=== PATIENT | male | born 1960 | race African-American/Black ===

== ENCOUNTER 2016-06-25 11:11 | Inpatient (IN) | payer OTHER ==
[2016-06-25 13:31] VITALS: BMI 28.4
--- NOTE | 2016-06-25 16:34 | HP ---
COWS - Scale Resting Pulse: 1= [place] 81-100 Sweatin=Flushed/Facial Moisture Restless Observation: 3= Extraneous Movement Pupil Size: 2= Moderately Dilated Bone or Joint Aches: 2= Severe Diffuse Aches Runny Nose/ Eye Tearin= Runny Nose/Eyes GI Upset > 30mins: 3= Vomiting/Diarrhea Tremor Observation: 2= Slight Tremor Visible Yawning Observation: 2= >3x During Session Anxiety or Irritability: 2=Irritable/Anxious Goose Flesh Skin: 0=Smooth Skin COWS Score: 21 CIWA Score - CIWA Score Nausea/Vomitin Muscle Tremors: 3 Anxiety: 3 Agitation: 3 Paroxysmal Sweats: 2 Orientation: 0-Oriented Tacttile Disturbances: 2-Mild Itch/Numbness/Burn Auditory Disturbances: 2-Mild Harshness/Frighten Visual Disturbances: 2-Mild Sensitivity Headache: 2-Mild CIWA-Ar Total Score: 22 Admission ROS BHS - HPI Chief Complaint: I NEED HELP TO STOP USING HEROIN,ALCOHOL AND COCAINE Allergies/Adverse Reactions: Allergies Allergy/AdvReac Type Severity Reaction Status Date / Time tomato [Tomato] Allergy Severe Hives Verified 06/25/16 14:41 No Known Drug Allergies Allergy Unknown Verified 06/25/16 14:41 tomatoes Allergy Severe Hives Uncoded 06/25/16 14:41 History of Present Illness: THIS 55 YEARS OLD MALE WITH HEROIN,ALCOHOL AND COCAINE DEPENDENCE,WITHDRAWAL SYMPTOM,LAST DETOX [facility] IN 01/19 ASTHMA DVT 2 YEARS AGO STOP COUMADIN 18 MONTHS AGO GERD LOW BACK PAIN LONGEST PERIOD OF SOBRIETY 9 YEARS 7 MONTHS Exam Limitations: No Limitations - Ebola screening Have you traveled outside of the country in the last 21 days: No (N) Have you had contact with anyone from an Ebola affected area: No Have you been sick,other than usual withdrawal symptoms: No Do you have a fever: No - Review of Systems Constitutional: Loss of Appetite, Malaise, Night Sweats, Changes in sleep, Weakness EENT: reports: Tearing, Nose Congestion Respiratory: reports: Other (ASTHMA) Cardiac: reports: Palpitations GI: reports: Diarrhea, Vomiting, Abdominal cramping : reports: No Symptoms Reported Musculoskeletal: reports: Back Pain, Muscle Pain Integumentary: reports: Dryness Neuro: reports: Headache, Tremors Endocrine: reports: No Symptoms Reported Hematology: reports: No Symptoms Reported Psychiatric: reports: Depressed Patient History - Patient Medical History Hx Anemia: No Hx Asthma: No Hx Chronic Obstructive Pulmonary Disease (COPD): No Hx Cancer: No Hx Cardiac Disorders: No Hx Congestive Heart Failure: No Hx Hypertension: No Hx Hypercholesterolemia: No Hx Pacemaker: No HX Cerebrovascular Accident: No Hx Seizures: No Hx Dementia: No Hx Diabetes: No Hx Gastrointestinal Disorders: No Hx Liver Disease: No Hx Genitourinary Disorders: No Hx Sexually Transmitted Disorders: No Hx Renal Disease (ESRD): No Hx Thyroid Disease: No Hx Human Immunodeficiency Virus (HIV): No (negative in 2012) Hx Hepatitis C: No Hx Depression: No Hx Suicide Attempt: No Hx Bipolar Disorder: No Hx Schizophrenia: No Other Medical History: NO SUICIDAL,NO HOMICIDAL - Patient Surgical History Past Surgical History: Yes Hx Neurologic Surgery: No Hx Cataract Extraction: No Hx Cardiac Surgery: No Hx Lung Surgery: No Hx Breast Surgery: No Hx Breast Biopsy: No Hx Abdominal Surgery: No Hx Appendectomy: No Hx Cholecystectomy: No Hx Genitourinary Surgery: No Hx Section: No Hx Orthopedic Surgery: Yes (s/p laminectomy AT L1-L5 X 7) Hx Hysterectomy: No Other Surgical History: neck sx x2 in 1999- 2009, vascular surgery to break up clots 12/2014 Anesthesia Reaction: No - PPD History Previous Implant?: Yes Documented Results: Negative w/o proof PPD to be Administered?: Yes - Smoking Cessation Smoking history: Current some day smoker Have you smoked in the past 12 months: Yes Aproximately how many cigarettes per day: 5 Cigars Per Day: 0 Hx Chewing Tobacco Use: No Initiated information on smoking cessation: Yes 'Breaking Loose' booklet given: 06/25/16 - Substance & Tx. History Hx Alcohol Use: Yes Hx Substance Use: Yes Substance Use Type: Alcohol, Cocaine, Marijuana, Opiates Hx Substance Use Treatment: Yes ([facility] 01/27/16) - Substances Abused Cocaine Route: Inhalation Frequency: 1-3 times last 30 days Amount used: 1 Gm Age of first use: 37 Date of Last Use: 06/22/16 Heroin Route: Inhalation Frequency: Daily Amount used: 3 bags Age of first use: 30 Date of Last Use: 06/24/16 Marijuana/Hashish Route: Smoking Frequency: 3-6 times per week Amount used: 1 blunt Age of first use: 30 Date of Last Use: 06/15/16 Alcohol Route: Oral Frequency: Daily Amount used: 1PINT OF MAKAYLA/6 OF 40 OZS OF BEER Age of first use: 30 Date of Last Use: 06/24/16 Family Disease History - Family Disease History Family Disease History: Diabetes: Grandparent, Father, Mother Admission Physical Exam [facility] - Vital Signs Vital Signs: Vital Signs - 24 hr 06/25/16 13:27 Temperature 97.5 F L Pulse Rate 91 H Respiratory 20 Rate Blood Pressure 120/72 - Physical General Appearance: Yes: Moderate Distress, Tremorous, Irritable, Sweating, Anxious HEENTM: Yes: Nasal Congestion, Rhinorrhea Respiratory: Yes: Lungs Clear Neck: Yes: Within Normal Limits Breast: Yes: Within Normal Limits Cardiology: Yes: Within Normal Limits, Regular Rhythm, Regular Rate, S1, S2 Abdominal: Yes: Within Normal Limits, Normal Bowel Sounds, Non Tender, Flat, Soft Genitourinary: Yes: Within Normal Limits Back: Yes: Muscle Spasm Extremities: Yes: Tremors Neurological: Yes: fountain server II-XII NML intact, Fully Oriented, Alert, Motor Strength 5/5 Integumentary: Yes: Dry Lymphatic: Yes: Within Normal Limits - Diagnostic (1) Alcohol dependence with uncomplicated withdrawal Current Visit: No Status: Chronic (2) Asthma Current Visit: No Status: Chronic (3) Chronic back pain Current Visit: No Status: Chronic (4) DVT (deep venous thrombosis) Current Visit: No Status: Chronic Qualifiers: Laterality: left Qualified Code(s): I82.402 - Acute embolism and thrombosis of unspecified deep veins of left lower extremity (5) Low back pain Current Visit: No Status: Chronic (6) Nicotine dependence Current Visit: No Status: Chronic (7) Opioid dependence with withdrawal Current Visit: No Status: Chronic (8) Cannabis dependence Current Visit: Yes Status: Acute (9) Cocaine dependence Current Visit: No Status: Chronic (10) Depression Current Visit: Yes Status: Acute (11) H/O neck surgery Current Visit: Yes Status: Acute (12) History of back surgery Current Visit: Yes Status: Acute Cleared for Admission [facility] - Detox or Rehab [facility] Level of Care: Medically Managed Detox Regimen/Protocol: Methadone/Librium [facility] Breath Alcohol Content Breath Alcohol Content: 0 Urine Drug Screen - Results Drug Screen Negative: No Urine Drug Screen Results: BRIANNA-Cocaine, OPI-Opiates, OXY-Oxycodone
[2016-06-25] MEDS ORDERED: MAGNESIUM CITRATE 300 ML BOTTLE PO PRN (16:57)
[2016-06-25] MEDS ORDERED: IBUPROFEN 400 MG TABLET (FP) PO PRN (16:57)
[2016-06-25] MEDS ORDERED: MENTHOL/PHENOL 1 EACH UD MM PRN (16:57)
[2016-06-25] MEDS ORDERED: hydrOXYzine PAMOATE 50 MG CAPSULE (FP) PO PRN (16:57)
[2016-06-25] MEDS ORDERED: chlordiazePOXIDE HCL 25 MG CAPSULE PO PRN (16:57)
[2016-06-25] MEDS ORDERED: guaiFENesin/D-METHORPHAN HB 10 ML UNIT-DOSE CUPS PO PRN (16:57)
[2016-06-25] MEDS ORDERED: LOPERAMIDE HCL 2 MG CAPSULE PO PRN (16:57)
[2016-06-25] MEDS ORDERED: P-EPHED 60MG/TRIPROLIDI 2.5MG TABLET PO PRN (16:57)
[2016-06-25] MEDS ORDERED: MAGNESIUM HYDROX 2400MG/30ML ORAL SUSPENSION 30 ML CUP PO PRN (16:57)
[2016-06-25] MEDS ORDERED: ACETAMINOPHEN 325 MG TABLET (FP) PO PRN (16:57)
[2016-06-25] MEDS ORDERED: ALBUTEROL SO4 6.7 GM HFA INHALER IH PRN (17:02)
[2016-06-25] MEDS ORDERED: METHADONE HCL 10 MG TABLET (FOR DETOX USE ONLY) PO ONE ×2 (17:30→23:00)
[2016-06-25] MEDS ORDERED: chlordiazePOXIDE HCL 25 MG CAPSULE PO ONE (17:30)
[2016-06-25] MEDS: PANTOPRAZOLE 40 MG TABLET (FP) PO SCH (19:12)
[2016-06-25] MEDS: THIAMINE HCL 100 MG TABLET (FP) PO SCH (22:08)
[2016-06-25] MEDS: chlordiazePOXIDE HCL 25 MG CAPSULE PO SCH (22:09)
[2016-06-25] MEDS: TOLNAFTATE 1% CREAM 15 GM TUBE TP SCH (22:12)
[2016-06-25 23:24] LABS: URINE APPEARANCE CLEAR; URINE BILIRUBIN NEGATIVE (NEGATIVE); URINE BLOOD NEGATIVE (NEGATIVE); URINE COLOR YELLOW; URINE GLUCOSE (UA) NEGATIVE (NEGATIVE); URINE KETONE TRACE (NEGATIVE); URINE LEUK ESTERASE NEGATIVE (NEGATIVE); URINE NITRITE NEGATIVE (NEGATIVE); URINE PROTEIN 1+ (NEGATIVE); URINE UROBILINOGEN NEGATIVE E.U./dl (0.2-1.0)
[2016-06-25 23:46] LABS: CALCIUM OXALATE CRYSTALS FEW /hpf (NONE SEEN); URINE BACTERIA RARE /hpf (NONE SEEN); URINE MUCUS MANY; URINE RBC 2 /hpf (0-3); URINE WBC 2 /hpf (3-5)
[2016-06-26] MEDS: MAG HYDROX/AL HYDROX/SIMETH 30 ML UNIT-DOSE CUP PO PRN (02:53)
[2016-06-26] MEDS: chlordiazePOXIDE HCL 25 MG CAPSULE PO SCH ×4 (05:19→22:14)
--- NOTE | 2016-06-26 09:36 | PN ---
BHS Progress Note (SOAP) Subjective: interrupted sleep, sweats ankle chin pains Objective: 06/26/16 09:34 Vital Signs Temperature 97.5 F L 06/26/16 06:00 Pulse Rate 62 06/26/16 06:00 Respiratory Rate 18 06/26/16 06:00 Blood Pressure 117/74 06/26/16 06:00 O2 Sat by Pulse Oximetry (%) Laboratory Tests 06/25/16 18:00 Urine Color Yellow Urine Appearance Clear Urine pH 5.0 Ur Specific [place] 1.021 Urine Protein 1+ H Urine Glucose (UA) Negative Urine Ketones Trace H Urine Blood Negative Urine Nitrite Negative Urine Bilirubin Negative Urine Urobilinogen Negative Ur Leukocyte Esterase Negative Urine RBC 2 Urine WBC 2 Calcium Oxalate Crystal Few Urine Bacteria Rare Urine Mucus Many pt aox3 in nad ambulating 06/26/16 11:29 pt aox3 in nad ambulating , slowly rt great toe amputation , rt chin bruise Assessment: 06/26/16 09:35 withdrawl sx;s h/o lung pathology needs cxr rt lower ext bruise 06/26/16 11:30 Plan: cont. detox increase fluids cxr flexeril 10mg tid analgesic balm bid may use own shoes
[2016-06-26] MEDS ORDERED: METHADONE HCL 10 MG TABLET (FOR DETOX USE ONLY) PO SCH (10:00)
[2016-06-26] MEDS: PRENATAL VITAMINS W/ FOLIC ACID TABLET (FP) PO SCH (10:06)
[2016-06-26] MEDS: PANTOPRAZOLE 40 MG TABLET (FP) PO SCH (10:07)
[2016-06-26 10:14] LABS: MCH 28.7 pg (25.7-33.7); MCHC 32.8 g/dl (32.0-35.9); MEAN CELL VOLUME 87.7 fl (80-96); MEAN PLT VOLUME 10.2 fl (7.5-11.1); PLATELET COUNT 207 K/MM3 (134-434); RDW 15.2 % (11.9-15.9); WHITE BLOOD COUNT 7.2 K/mm3 (4.0-10.0)
[2016-06-26 10:26] LABS: ALBUMIN 3.4 g/dl (3.4-5.0); ANION GAP 8 (8-16); BILIRUBIN,TOTAL 0.2 mg/dL (0.2-1.0); CO2 27 mmol/L (21-32); GLUCOSE,RANDOM 82 mg/dL (74-106); SGOT/AST 26 U/L (15-37); SGPT/ALT 34 U/L (12-78); TOT PROT 7.4 g/dl (6.4-8.2)
[2016-06-26 10:28] LABS: ALK PHOS 99 U/L (45-117); CALCIUM 9.8 mg/dL (8.5-10.1); CREATININE 0.9 mg/dL (0.7-1.3)
[2016-06-26] MEDS: TOLNAFTATE 1% CREAM 15 GM TUBE TP SCH ×2 (11:00→23:40)
[2016-06-26 11:45] LABS: HIV 1 & 2 AB NEGATIVE; HIV 1 AGp24 NEGATIVE
[2016-06-26] MEDS: CYCLOBENZAPRINE HCL 10 MG TABLET (FP) PO PRN ×2 (13:48→22:14)
--- NOTE | 2016-06-26 14:55 | CONSULT ---
[facility] Psychiatric Consult - Data Date of interview: 06/26/16 Admission source: [facility] Identifying data: Readmission to [facility] for this 55 y/o AA male seeking detox treatment on for alcohol,cocaine,marijuana and opioid dependence.Patient is ,a father of eight,domiciled,unemployed and supported on [facility] benefits. Substance Abuse History: - Smoking Cessation. Smoking history: Current some day smoker. Have you smoked in the past 12 months: Yes. Aproximately how many cigarettes per day: 5. Cigars Per Day: 0. Hx Chewing Tobacco Use: No. Initiated information on smoking cessation: Yes. 'Breaking Loose' booklet given : 06/25/16. - Substance & Tx. History. Hx Alcohol Use: Yes. Hx Substance Use : Yes. Substance Use Type: Alcohol, Cocaine, Marijuana, Opiates. Hx Substance Use Treatment: Yes ([facility] 01/27/16). - Substances Abused. Cocaine. Route: Inhalation. Frequency: 1-3 times last 30 days. Amount used: 1 Gm. Age of first use: 37. Date of Last Use: 06/22/16. Heroin. Route: Inhalation. Frequency: Daily. Amount used: 3 bags. Age of first use: 30. Date of Last Use : 06/24/16. Marijuana/Hashish. Route: Smoking. Frequency: 3-6 times per week. Amount used: 1 blunt. Age of first use: 30. Date of Last Use: . Alcohol. Route: Oral. Frequency: Daily. Amount used: 1PINT OF MAKAYLA/6 OF 40 OZS OF BEER. Age of first use: 30. Date of Last Use: . Confirmed by the patient in this interview. Medical History: Obesity,DVT,GERD,bronchial asthma and a history of orthosurgery (laminectomy at L1-L5 level). Psychiatric History: Patient denies. Physical/Sexual Abuse/Trauma History: Patient denies history of sexual abuse.Current stressor :recent of his five year old son to leukemia. Additional Comment: Urine Drug Screen Results: BRIANNA-Cocaine, OPI-Opiates, OXY- Oxycodone.Noted. Mental Status Exam - Mental Status Exam Alert and Oriented to: Time, Place, Person Cognitive Function: Good Patient Appearance: Well Groomed (tall,overweight) Mood: Nervous, Hopeful Affect: Appropriate, Constricted (during interview when talking about his five year old departed child) Patient Behavior: Appropriate, Cooperative Speech Pattern: Clear Voice Loudness: Normal Thought Process: Goal Oriented Thought Disorder: Not Present Hallucinations: Denies Suicidal Ideation: Denies Homicidal Ideation: Denies Insight/Judgement: Poor Sleep: Fair Appetite: Good Muscle strength/Tone: Normal Gait/Station: Normal Psychiatric Findings - Problem List ([place] 1, 2,3) (1) Bereavement Current Visit: Yes Status: Acute (2) Alcohol dependence with uncomplicated withdrawal Current Visit: Yes Status: Chronic (3) Opioid dependence with withdrawal Current Visit: Yes Status: Chronic (4) Cocaine dependence Current Visit: Yes Status: Chronic (5) Cannabis dependence Current Visit: Yes Status: Acute (6) Nicotine dependence Current Visit: No Status: Chronic (7) Substance induced mood disorder Current Visit: Yes Status: Acute (8) H/O neck surgery Current Visit: No Status: Chronic (9) History of back surgery Current Visit: No Status: Chronic (10) Asthma Current Visit: Yes Status: Chronic (11) Chronic back pain Current Visit: Yes Status: Chronic (12) DVT (deep venous thrombosis) Current Visit: Yes Status: Chronic Qualifiers: Laterality: left Qualified Code(s): I82.402 - Acute embolism and thrombosis of unspecified deep veins of left lower extremity (13) Low back pain Current Visit: Yes Status: Chronic - Initial Treatment Plan Initial Treatment Plan: Psychoeducation.Detoxification.Support and empathy provided to the patient.Observation.
--- NOTE | 2016-06-26 21:36 | EKG ---
Test Reason : Blood Pressure : / mmHG Vent. Rate : 082 BPM Atrial Rate : 082 BPM P-R Int : 146 ms QRS Dur : 090 ms QT Int : 360 ms P-R-T Axes : 074 055 053 degrees QTc Int : 420 ms NORMAL SINUS RHYTHM RIGHT ATRIAL ENLARGEMENT BORDERLINE ECG NO PREVIOUS ECGS AVAILABLE Confirmed by BERNA WETZEL, JOHNATHAN ([id number]) on 06/26/2016 9:35:47 PM Referred By: Confirmed By:JOHNATHAN CORONEL MD
[2016-06-26] MEDS: THIAMINE HCL 100 MG TABLET (FP) PO SCH (22:14)
[2016-06-26] MEDS: diphenhydrAMINE HCL 50 MG CAPSULE PO PRN (22:14)
[2016-06-26] MEDS: METHYL SALICYLATE/MENTHOL OINT 30 GM TUBE TP SCH (23:39)
[2016-06-27] MEDS: chlordiazePOXIDE HCL 25 MG CAPSULE PO SCH ×3 (05:41→17:03)
[2016-06-27] MEDS ORDERED: METHADONE HCL 5 MG TABLET (FOR DETOX USE ONLY) PO SCH (10:00)
--- NOTE | 2016-06-27 10:22 | PN ---
[facility] CIWA - CIWA Score Nausea/Vomitin-No Nausea/No Vomiting Muscle Tremors: 4-Moderate,w/Arms Extend Anxiety: 3 Agitation: 4-Moderately Restless Paroxysmal Sweats: 3 Orientation: 0-Oriented Tacttile Disturbances: 0-None Auditory Disturbances: 0-None Visual Disturbances: 0-None Headache: 1-Very Mild CIWA-Ar Total Score: 15 BHS COWS - Scale Resting Pulse: 1= ID [id number] Sweatin=Flushed/Facial Moisture Restless Observation: 1= Difficult to Sit Still Pupil Size: 0= Normal to Room Light Bone or Joint Aches: 2= Severe Diffuse Aches Runny Nose/ Eye Tearin= Nasal Congestion GI Upset > 30mins: 0= None Tremor Observation of Outstretched Hands: 2= Slight Tremor Visible Yawning Observation: 1= 1-2x During Session Anxiety or Irritability: 2=Irritable/Anxious Goose Flesh Skin: 0=Smooth Skin COWS Score: 12 S Progress Note (SOAP) Subjective: shakes sweats headache agitation constipation Objective: 06/27/16 10:18 Vital Signs Temperature 97.9 F 06/27/16 10:03 Pulse Rate 84 06/27/16 10:03 Respiratory Rate 20 06/27/16 10:03 Blood Pressure 130/73 06/27/16 10:03 O2 Sat by Pulse Oximetry (%) Laboratory Tests 06/25/16 06/26/16 06/26/16 18:00 08:00 08:00 WBC 7.2 RBC 4.98 Hgb 14.3 D Hct 43.7 MCV 87.7 MCHC 32.8 RDW 15.2 Plt Count 207 MPV 10.2 Sodium Potassium Chloride Carbon Dioxide Anion Gap BUN Creatinine Creat Clearance w eGFR Random Glucose Calcium Total Bilirubin AST ALT Alkaline Phosphatase Total Protein Albumin Urine Color Yellow Urine Appearance Clear Urine pH 5.0 Ur Specific [place] 1.021 Urine Protein 1+ H Urine Glucose (UA) Negative Urine Ketones Trace H Urine Blood Negative Urine Nitrite Negative Urine Bilirubin Negative Urine Urobilinogen Negative Ur Leukocyte Esterase Negative Urine RBC 2 Urine WBC 2 Calcium Oxalate Crystal Few Urine Bacteria Rare Urine Mucus Many RPR Titer HIV 1&2 Antibody Screen Negative HIV P24 Antigen Negative 06/26/16 06/26/16 08:00 08:00 WBC RBC Hgb Hct MCV MCHC RDW Plt Count MPV Sodium 139 Potassium 4.4 Chloride 104 Carbon Dioxide 27 Anion Gap 8 BUN 16 D Creatinine 0.9 D Creat Clearance w eGFR > 60 Random Glucose 82 D Calcium 9.8 Total Bilirubin 0.2 AST 26 D ALT 34 Alkaline Phosphatase 99 Total Protein 7.4 Albumin 3.4 Urine Color Urine Appearance Urine pH Ur Specific [place] Urine Protein Urine Glucose (UA) Urine Ketones Urine Blood Urine Nitrite Urine Bilirubin Urine Urobilinogen Ur Leukocyte Esterase Urine RBC Urine WBC Calcium Oxalate Crystal Urine Bacteria Urine Mucus RPR Titer Nonreactive HIV 1&2 Antibody Screen HIV P24 Antigen awake/alert ambulating no acute distress Assessment: 06/27/16 10:20 withdrawal sx Plan: continue detox increase fluids colace 100mg tid
[2016-06-27] MEDS: TOLNAFTATE 1% CREAM 15 GM TUBE TP SCH ×2 (10:32→22:16)
[2016-06-27] MEDS: METHYL SALICYLATE/MENTHOL OINT 30 GM TUBE TP SCH ×2 (10:32→22:16)
[2016-06-27] MEDS: PRENATAL VITAMINS W/ FOLIC ACID TABLET (FP) PO SCH (10:34)
[2016-06-27] MEDS: PANTOPRAZOLE 40 MG TABLET (FP) PO SCH (10:34)
[2016-06-27] MEDS: DOCUSATE SODIUM 100 MG CAPSULE (FP) PO SCH ×2 (15:16→22:17)
[2016-06-27] MEDS: MAG HYDROX/AL HYDROX/SIMETH 30 ML UNIT-DOSE CUP PO PRN (20:33)
[2016-06-27] MEDS: THIAMINE HCL 100 MG TABLET (FP) PO SCH (22:17)
[2016-06-27] MEDS: chlordiazePOXIDE 5 MG CAPSULE PO SCH (22:17)
[2016-06-27] MEDS: diphenhydrAMINE HCL 50 MG CAPSULE PO PRN (22:17)
[2016-06-28] MEDS: chlordiazePOXIDE 5 MG CAPSULE PO SCH (05:14)
[2016-06-28] MEDS: DOCUSATE SODIUM 100 MG CAPSULE (FP) PO SCH (05:15)
[2016-06-28 09:51] VITALS: BP 108/69; PULSE 81; TEMP 96.4
--- NOTE | 2016-06-28 10:47 | DS ---
[facility] Detox Discharge Summary Admission Date: 06/25/16 Discharge Date: 06/28/16 - History Present History: Alcohol Dependence, Cocaine Dependence, Opioid Dependence Pertinent Past History: Asthma Chronic DVT - Physical Exam Results Vital Signs: Vital Signs Temperature 96.4 F L 06/28/16 09:49 Pulse Rate 81 06/28/16 09:49 Respiratory Rate 20 06/28/16 09:49 Blood Pressure 108/69 06/28/16 09:49 O2 Sat by Pulse Oximetry (%) Pertinent Admission Physical Exam Findings: Withdrawal sx. Laboratory Last Values WBC 7.2 K/mm3 (4.0-10.0) 06/26/16 08:00 RBC 4.98 M/mm3 (4.00-5.60) 06/26/16 08:00 Hgb 14.3 GM/dL (11.7-16.9) D 06/26/16 08:00 Hct 43.7 % (35.4-49) 06/26/16 08:00 MCV 87.7 fl (80-96) 06/26/16 08:00 MCHC 32.8 g/dl (32.0-35.9) 06/26/16 08:00 RDW 15.2 % (11.9-15.9) 06/26/16 08:00 Plt Count 207 K/MM3 (134-434) 06/26/16 08:00 MPV 10.2 fl (7.5-11.1) 06/26/16 08:00 Sodium 139 mmol/L (136-145) 06/26/16 08:00 Potassium 4.4 mmol/L (3.5-5.1) 06/26/16 08:00 Chloride 104 mmol/L (98-107) 06/26/16 08:00 Carbon Dioxide 27 mmol/L (21-32) 06/26/16 08:00 Anion Gap 8 (8-16) 06/26/16 08:00 BUN 16 mg/dL (7-18) D 06/26/16 08:00 Creatinine 0.9 mg/dL (0.7-1.3) D 06/26/16 08:00 Creat Clearance w eGFR > 60 (>60) 06/26/16 08:00 Random Glucose 82 mg/dL (74-106) D 06/26/16 08:00 Calcium 9.8 mg/dL (8.5-10.1) 06/26/16 08:00 Total Bilirubin 0.2 mg/dL (0.2-1.0) 06/26/16 08:00 AST 26 U/L (15-37) D 06/26/16 08:00 ALT 34 U/L (12-78) 06/26/16 08:00 Alkaline Phosphatase 99 U/L (45-117) 06/26/16 08:00 Total Protein 7.4 g/dl (6.4-8.2) 06/26/16 08:00 Albumin 3.4 g/dl (3.4-5.0) 06/26/16 08:00 Urine Color Yellow 06/25/16 18:00 Urine Appearance Clear 06/25/16 18:00 Urine pH 5.0 (5.0-8.0) 06/25/16 18:00 Ur Specific [place] 1.021 (1.001-1.035) 06/25/16 18:00 Urine Protein 1+ (NEGATIVE) H 06/25/16 18:00 Urine Glucose (UA) Negative (NEGATIVE) 06/25/16 18:00 Urine Ketones Trace (NEGATIVE) H 06/25/16 18:00 Urine Blood Negative (NEGATIVE) 06/25/16 18:00 Urine Nitrite Negative (NEGATIVE) 06/25/16 18:00 Urine Bilirubin Negative (NEGATIVE) 06/25/16 18:00 Urine Urobilinogen Negative E.U./dl (0.2-1.0) 06/25/16 18:00 Ur Leukocyte Esterase Negative (NEGATIVE) 06/25/16 18:00 Urine RBC 2 /hpf (0-3) 06/25/16 18:00 Urine WBC 2 /hpf (3-5) 06/25/16 18:00 Calcium Oxalate Crystal Few /hpf (NONE SEEN) 06/25/16 18:00 Urine Bacteria Rare /hpf (NONE SEEN) 06/25/16 18:00 Urine Mucus Many 06/25/16 18:00 RPR Titer Nonreactive (NONREACTIVE) 06/26/16 08:00 HIV 1&2 Antibody Screen Negative 06/26/16 08:00 HIV P24 Antigen Negative 06/26/16 08:00 labs noted - Medication Discharge Medications: Ambulatory Orders Cyclobenzaprine HCl [Flexeril] 5 mg PO DAILY 03/16/15 Multivitamins [Multivit ([facility] Formulary)] 1 tab PO DAILY 03/16/15 Oxycodone HCl/Acetaminophen [Percocet 10-325 mg Tablet] 1 - 2 tab PO Q6H Warfarin Sodium [Coumadin] 7.5 mg PO DAILY #30 tablet 03/19/15 - Diagnosis (1) Cannabis dependence Current Visit: Yes Status: Acute (2) Substance induced mood disorder Current Visit: Yes Status: Acute (3) Alcohol dependence with uncomplicated withdrawal Current Visit: Yes Status: Chronic (4) Asthma Current Visit: Yes Status: Chronic (5) Cocaine dependence Current Visit: Yes Status: Chronic (6) DVT (deep venous thrombosis) Current Visit: Yes Status: Chronic Qualifiers: DVT location: lower extremity Laterality: left Chronicity: chronic Qualified Code(s): I82.402 - Acute embolism and thrombosis of unspecified deep veins of left lower extremity (7) Opioid dependence with withdrawal Current Visit: Yes Status: Chronic - AMA Did Patient Leave Against Medical Advice: No
[2016-06-28] MEDS ORDERED: chlordiazePOXIDE HCL 10 MG CAPSULE PO SCH (23:00)
[2016-06-29] MEDS ORDERED: METHADONE HCL 10 MG TABLET (FOR DETOX USE ONLY) PO SCH (10:00)
[2016-06-30] MEDS ORDERED: METHADONE HCL 5 MG TABLET (FOR DETOX USE ONLY) PO SCH (06:00)
== END 2016-06-28 10:43 | disposition home or self-care (01) | DRG 773 ==
LOC: YASAS 11:11 → Y6N 14:54 → Y3N 06-27 11:26
PROVIDERS: ADMIT Internal Medicine; ATTEND Internal Medicine
PROC: HZ2ZZZZ Detoxification Services for Substance Abuse Treatment (ICD-10-PCS; principal; 2016-06-25)
DX: F11.23 Opioid dependence with withdrawal (principal); F13.230 Sedative, hypnotic or anxiolytic dependence with withdrawal, uncomplicated; F10.230 Alcohol dependence with withdrawal, uncomplicated; F14.20 Cocaine dependence, uncomplicated; F12.20 Cannabis dependence, uncomplicated; F17.210 Nicotine dependence, cigarettes, uncomplicated; F19.24 Other psychoactive substance dependence with psychoactive substance-induced mood disorder; F32.9 Major depressive disorder, single episode, unspecified; Z63.4 Disappearance and death of family member; J45.909 Unspecified asthma, uncomplicated; K21.9 Gastro-esophageal reflux disease without esophagitis; M54.5 Low back pain; G89.29 Other chronic pain; Z86.39 Personal history of other endocrine, nutritional and metabolic disease; Z98.890 Other specified postprocedural states; Z86.718 Personal history of other venous thrombosis and embolism; Z89.411 Acquired absence of right great toe
CPT/HCPCS: 36415; 71020-TC; 80053; 81003; 81015; 85027; 86593; 87389; 93005; 93010

== ENCOUNTER 2022-12-13 19:31 | Inpatient (IN) | payer OTHER ==
[2022-12-13 20:38] VITALS: BMI 27.8
[2022-12-13] MEDS ORDERED: IBUPROFEN 400 MG TABLET (FP) PO PRN (22:04)
[2022-12-13] MEDS ORDERED: MAGNESIUM HYDROX 2400MG/30ML ORAL SUSPENSION 30 ML CUP PO PRN (22:04)
[2022-12-13] MEDS ORDERED: BENZONATATE 200 MG CAPSULE PO PRN (22:04)
[2022-12-13] MEDS ORDERED: ACETAMINOPHEN 325 MG TABLET (FP) PO PRN (22:04)
[2022-12-13] MEDS ORDERED: IBUPROFEN 600 MG TABLET (FP) PO PRN (22:04)
[2022-12-13] MEDS ORDERED: LOPERAMIDE HCL 2 MG CAPSULE PO PRN (22:04)
[2022-12-13] MEDS ORDERED: BENZOCAINE/MENTHOL (CHLORASEPTIC ) LOZENGE MM PRN (22:04)
[2022-12-13] MEDS ORDERED: NICOTINE POLACRILEX 2 MG GUM BUC PRN (22:04)
[2022-12-13] MEDS ORDERED: ONDANSETRON *ODT* 4 MG TABLET SL PRN (22:04)
[2022-12-13] MEDS ORDERED: BISMUTH SUBSALICYLATE 524 MG/30 ML PO PRN (22:04)
[2022-12-13] MEDS ORDERED: POLYETHYLENE GLYCOL (HEALTHYLAX) 3350 17 GM PACKET PO PRN (22:04)
[2022-12-13] MEDS ORDERED: guaiFENesin 600 MG TABLET.ER (FP) PO PRN (22:04)
[2022-12-13] MEDS ORDERED: NALOXONE HCL (KLOXXADO) 8 MG SPRAY NS PRN (22:04)
[2022-12-13] MEDS ORDERED: MAG HYDROX/AL HYDROX/SIMETH 30 ML UNIT-DOSE CUP PO PRN (22:04)
[2022-12-13] MEDS ORDERED: DICYCLOMINE HCL 10 MG CAPSULE PO PRN (22:04)
[2022-12-13] MEDS ORDERED: NALOXONE HCL 0.4 MG/ML VIAL IM PRN (22:04)
[2022-12-13] MEDS ORDERED: cloNIDine HCL 0.1 MG TABLET PO PRN (22:10)
[2022-12-13] MEDS ORDERED: chlordiazePOXIDE HCL 25 MG CAPSULE PO PRN (22:10)
[2022-12-13] MEDS ORDERED: methaDONE HCL 10 MG TABLET (FOR DETOX USE ONLY) PO ONE (22:10)
[2022-12-13] MEDS ORDERED: methaDONE HCL 10 MG TABLET (FOR DETOX USE ONLY) ONE (23:00)
[2022-12-13] MEDS ORDERED: chlordiazePOXIDE HCL 25 MG CAPSULE ONE (23:00)
[2022-12-13] MEDS: chlordiazePOXIDE HCL 25 MG CAPSULE PO SCH (23:04)
[2022-12-14] MEDS: chlordiazePOXIDE HCL 25 MG CAPSULE PO SCH ×4 (06:26→22:28)
[2022-12-14] MEDS: PRENATAL VITAMINS W/ FOLIC ACID TABLET (FP) PO SCH (10:35)
[2022-12-14] MEDS: NICOTINE 21 MG/24 HOURS TOPICAL PATCH TD SCH (10:37)
[2022-12-14 12:02] LABS: HEMATOCRIT 40.9 % (35.4-49); HEMOGLOBIN 13.5 GM/dL (11.7-16.9); MCH 28.5 pg (25.7-33.7); MCHC 33.1 g/dl (32.0-35.9); MEAN CELL VOLUME 86.3 fl (80-96); MEAN PLT VOLUME 10.1 fl (7.5-11.1); PLATELET COUNT 233 10^3/uL (134-434); RBC 4.74 M/mm3 (4.00-5.60)
[2022-12-14 12:14] LABS: POTASSIUM 4.2 mmol/L (3.5-5.1)
[2022-12-14 12:22] LABS: ALBUMIN 3.1 g/dl (3.4-5.0); BLOOD UREA NITROGEN 8.6 mg/dL (7-18); CALCIUM 9.2 mg/dL (8.5-10.1); CREATININE 0.9 mg/dL (0.55-1.3)
[2022-12-14 12:23] LABS: BILIRUBIN,TOTAL 0.2 mg/dL (0.2-1)
[2022-12-14] MEDS: THIAMINE HCL 100 MG TABLET (FP) PO SCH (22:27)
[2022-12-14] MEDS: MELATONIN 5 MG TABLETS PO SCH (22:27)
[2022-12-15] MEDS: chlordiazePOXIDE HCL 25 MG CAPSULE PO SCH ×3 (05:36→16:52)
[2022-12-15] MEDS ORDERED: methaDONE HCL 10 MG TABLET (FOR DETOX USE ONLY) PO ONE (10:00)
[2022-12-15] MEDS ORDERED: diazePAM 5 MG TABLET PO PRN (10:17)
[2022-12-15] MEDS: NICOTINE 21 MG/24 HOURS TOPICAL PATCH TD SCH (10:17)
[2022-12-15] MEDS: PRENATAL VITAMINS W/ FOLIC ACID TABLET (FP) PO SCH (10:17)
[2022-12-15] MEDS ORDERED: APIXABAN 5 MG TABLET PO SCH (18:00)
[2022-12-15] MEDS: diazePAM 5 MG TABLET PO SCH (22:41)
[2022-12-15] MEDS: APIXABAN 5 MG TABLET PO SCH (22:41)
[2022-12-15] MEDS: THIAMINE HCL 100 MG TABLET (FP) PO SCH (22:41)
[2022-12-15] MEDS: MELATONIN 5 MG TABLETS PO SCH (22:41)
[2022-12-16] MEDS ORDERED: chlordiazePOXIDE HCL 10 MG CAPSULE PO PRN
[2022-12-16] MEDS ORDERED: chlordiazePOXIDE HCL 10 MG CAPSULE PO SCH (05:00)
[2022-12-16] MEDS: diazePAM 5 MG TABLET PO SCH ×3 (08:12→17:04)
[2022-12-16] MEDS: APIXABAN 5 MG TABLET PO SCH ×2 (10:08→21:27)
[2022-12-16] MEDS: diazePAM 5 MG TABLET PO PRN ×2 (10:10→21:28)
[2022-12-16] MEDS: NICOTINE 21 MG/24 HOURS TOPICAL PATCH TD SCH (10:12)
[2022-12-16] MEDS: PRENATAL VITAMINS W/ FOLIC ACID TABLET (FP) PO SCH (10:12)
[2022-12-16] MEDS: THIAMINE HCL 100 MG TABLET (FP) PO SCH (21:27)
[2022-12-16] MEDS: MELATONIN 5 MG TABLETS PO SCH (21:27)
[2022-12-17] MEDS ORDERED: chlordiazePOXIDE HCL 10 MG CAPSULE PO SCH (05:00)
[2022-12-17] MEDS ORDERED: diazePAM 5 MG TABLET PO ONE (06:00)
[2022-12-17] MEDS ORDERED: diazePAM 5 MG TABLET PO SCH (06:00)
[2022-12-17] MEDS ORDERED: methaDONE HCL 10 MG TABLET (FOR DETOX USE ONLY) PO ONE (10:00)
[2022-12-17] MEDS: APIXABAN 5 MG TABLET PO SCH ×2 (10:24→22:18)
[2022-12-17] MEDS: PRENATAL VITAMINS W/ FOLIC ACID TABLET (FP) PO SCH (10:24)
[2022-12-17] MEDS: NICOTINE 21 MG/24 HOURS TOPICAL PATCH TD SCH (10:24)
[2022-12-17] MEDS ORDERED: ACETAMINOPHEN 325 MG TABLET (FP) PO PRN (13:00)
[2022-12-17] MEDS: MELATONIN 5 MG TABLETS PO SCH (22:18)
[2022-12-17] MEDS: THIAMINE HCL 100 MG TABLET (FP) PO SCH (22:18)
[2022-12-18] MEDS ORDERED: chlordiazePOXIDE HCL 10 MG CAPSULE PO ONE (05:00)
[2022-12-18] MEDS ORDERED: diazePAM 5 MG TABLET PO SCH (06:00)
[2022-12-18 09:19] VITALS: BP 102/61; PULSE 71; RESP 18; TEMP 96.9
[2022-12-18] MEDS: APIXABAN 5 MG TABLET PO SCH (10:14)
[2022-12-18] MEDS: PRENATAL VITAMINS W/ FOLIC ACID TABLET (FP) PO SCH (10:14)
[2022-12-18] MEDS: NICOTINE 21 MG/24 HOURS TOPICAL PATCH TD SCH (10:15)
[2022-12-19] MEDS ORDERED: diazePAM 5 MG TABLET PO ONE (06:00)
== END 2022-12-18 11:09 | disposition home or self-care (01) | DRG 773 ==
LOC: YASAS 19:31 → Y3N 12-14 02:09
PROVIDERS: ADMIT Allergy & Immunology; ATTEND Allergy & Immunology
PROC: HZ2ZZZZ Detoxification Services for Substance Abuse Treatment (ICD-10-PCS; principal; 2022-12-14)
DX: F11.23 Opioid dependence with withdrawal (principal); F10.230 Alcohol dependence with withdrawal, uncomplicated; F17.210 Nicotine dependence, cigarettes, uncomplicated; R07.89 Other chest pain; J45.909 Unspecified asthma, uncomplicated; K21.9 Gastro-esophageal reflux disease without esophagitis; M54.50 Low back pain, unspecified; G89.29 Other chronic pain; R00.1 Bradycardia, unspecified; I82.402 Acute embolism and thrombosis of unspecified deep veins of left lower extremity; Z88.8 Allergy status to other drugs, medicaments and biological substances; Z79.01 Long term (current) use of anticoagulants
CPT/HCPCS: 36415; 71046-TC-FY; 80053; 85027; 86780; 87635; 93005; 93010

== ENCOUNTER 2022-12-17 14:19 | Emergency (ER) | payer OTHER ==
[2022-12-17] MEDS ORDERED: ACETAMINOPHEN 1000 MG/100 ML BAG IVPB ONE (14:41)
[2022-12-17 14:44] VITALS: BMI 29.0
[2022-12-17] MEDS ORDERED: ACETAMINOPHEN INJECTION 100 ML IVPB ONE (15:48)
[2022-12-17 16:31] LABS: BASO % 1.3 % (0-2.0); EOS % 2.7 % (0-4.5); HEMOGLOBIN 13.5 GM/dL (11.7-16.9); LYMPH % 28.1 % (8-40); MCH 28.5 pg (25.7-33.7); MCHC 33.7 g/dl (32.0-35.9); MEAN CELL VOLUME 84.7 fl (80-96); MEAN PLT VOLUME 9.4 fl (7.5-11.1); MONO % 8.2 % (3.8-10.2); NEUT % 59.7 % (42.8-82.8); PLATELET COUNT 206 10^3/uL (134-434); RBC 4.72 M/mm3 (4.00-5.60); RDW 14.5 % (11.9-15.9); WHITE BLOOD COUNT 7.1 K/mm3 (4.0-10.0)
[2022-12-17 16:54] LABS: CHLORIDE 105 mmol/L (98-107); POTASSIUM 4.4 mmol/L (3.5-5.1); SODIUM 138 mmol/L (136-145)
[2022-12-17 16:56] LABS: CALCIUM 9.7 mg/dL (8.5-10.1)
[2022-12-17 16:57] LABS: ANION GAP 3 MMOL/L (8-16); BLOOD UREA NITROGEN 10.2 mg/dL (7-18); CO2 31 mmol/L (21-32); GLUCOSE,RANDOM 123 mg/dL (74-106)
[2022-12-17 17:01] LABS: BILIRUBIN,TOTAL < 0.1 mg/dL (0.2-1); CREATININE 0.8 mg/dL (0.55-1.3); SGOT/AST 22 U/L (15-37); SGPT/ALT 23 U/L (13-61); TOT PROT 6.8 g/dl (6.4-8.2)
[2022-12-17 17:03] LABS: ALK PHOS 116 U/L (45-117)
[2022-12-17 17:05] LABS: N-TERMINAL BNP 90.7 pg/ml (5-125)
[2022-12-17 17:11] VITALS: BP 135/76; PULSE 55; RESP 12; TEMP 98.7
[2022-12-17 19:13] LABS: VENOUS BASE EXCESS 1.4 mmol/L (-2-2); VENOUS O2 SATURATION 44.9 % (70-80); VENOUS PCO2 60.1 mmHg (38-52); VENOUS PH 7.309 (7.310-7.410)
[2022-12-17 19:28] LABS: INR 1.03 (0.83-1.09); PROTHROMBIN TIME (PATIENT) 11.9 SEC (9.7-13.0)
[2022-12-17 19:43] LABS: ACTIVATED PTT 164.3 SECONDS (25.2-36.5)
== END 2022-12-17 20:30 | disposition home or self-care (01) ==
LOC: JER 14:19
DX: R07.9 Chest pain, unspecified (principal); R06.02 Shortness of breath; R42 Dizziness and giddiness; Z20.822 Contact with and (suspected) exposure to COVID-19
CPT/HCPCS: 0241U-QW; 36415; 71045-TC-FY; 71275-TC; 80053; 82803; 83880; 84484; 85025; 85610; 85730; 93005; 93010; 99285-25